=== PATIENT | female | born 1975 | race Caucasian/White ===

== ENCOUNTER 2017-02-03 23:31 | Emergency (ER) | payer OTHER ==
[2017-02-03 23:38] VITALS: TEMP 97.9
[2017-02-03] MEDS ORDERED: HYDROmorphONE/DILAUDID 1 MG/ML SYR IVP ONE (23:51)
[2017-02-03] MEDS ORDERED: ONDANSETRON 4 MG/2 ML VIAL IVP ONE (23:51)
[2017-02-04 00:04] LABS: % IMMATURE GRANULYOCYTES 0.4 % (0.0-1.1); ABSOLUTE IMMATURE GRANULOCYTES 0.05 10^3/uL (0.00-0.10); ADD DIFF? NO; ADD MORPH? NO; ADD SCAN? NO; ATYPICAL LYMPHOCYTE FLAG 0 (0-99); FRAGMENT RBC FLAG 0 (0-99); HEMOGLOBIN 12.8 g/dL (12.6-16.3); LEFT SHIFT FLG 0 (0-99); LIPEMIA HEMOLYSIS FLAG 90 (0-99); MEAN CELL HEMOGLOBIN 29.7 pg (27.9-34.1); MEAN CELL HEMOGLOBIN CONCENTR. 34.6 g/dL (32.4-36.7); MEAN CELL VOLUME 85.8 fL (81.5-99.8); MEAN PLATELET VOLUME 8.3 fL (8.7-11.7); PLATELET CLUMPS FLAG 10 (0-99); PLATELET COUNT 462 10^3/uL (150-400); RED BLOOD CELL COUNT 4.31 10^6/uL (4.18-5.33); RED CELL DISTRIBUTION WIDTH 11.9 % (11.5-15.2)
[2017-02-04 00:27] LABS: ALANINE AMINOTRANSFERASE 63 IU/L (9-52); ALBUMIN 4.3 g/dL (3.5-5.0); ALKALINE PHOSPHATASE 70 IU/L (38-126); ANION GAP 14 mEq/L (8-16); ASPARTATE AMINOTRANSFERASE 93 IU/L (14-46); BILIRUBIN,TOTAL 0.8 mg/dL (0.1-1.4); BILIRUBIN-CONJUGATED 0.5 mg/dL (0.0-0.5); BILIRUBIN-UNCONJUGATED 0.3 mg/dL (0.0-1.1); CALCIUM 9.7 mg/dL (8.5-10.4); CARBON DIOXIDE 21 mEq/l (22-31); CHLORIDE 106 mEq/L (97-110); CREATININE 0.9 mg/dL (0.6-1.0); GLOMERULAR FILTRATION RATE > 60; GLUCOSE 126 mg/dL (70-100); POTASSIUM 4.1 mEq/L (3.5-5.2); SODIUM 141 mEq/L (134-144); TOTAL PROTEIN 7.3 g/dL (6.3-8.2)
--- NOTE | 2017-02-04 00:43 | EDPHY ---
H & P Stated Complaint: RLQ abd pain - Personal History LMP (Females 10-55): 1-7 Days Ago Current Tetanus/Diphtheria Vaccine: Yes Current Tetanus Diphtheria and Acellular Pertussis (TDAP): Yes - Medical/Surgical History Hx Asthma: Yes Hx Chronic Respiratory Disease: No Hx Diabetes: No Hx Cardiac Disease: No Hx Renal Disease: No Hx Cirrhosis: No Hx Alcoholism: No Hx HIV/AIDS: No Hx Splenectomy or Spleen Trauma: No Other PMH: asthma, - Social History Smoking Status: Never smoked Time Seen by Provider: 02/03/17 23:43 HPI/ROS: Chief complaint: Abdominal pain History of present illness: This is a 41-year-old female who presents to the emergency department for evaluation of abdominal pain. Patient reports the onset of symptoms earlier this evening. She reports pain in the right, upper aspect of the abdomen. It does radiate towards her mid back. She describes a squeezing pain. She has had nausea but no vomiting. She denies precipitating factors. She denies alleviating factors. She denies other associated signs or symptoms including no fevers, again no vomiting, no diarrhea, no urinary symptoms. Review of systems: A 10 point review of systems was obtained and other than described above was negative (Esteban Cisneros) - Physical Exam Exam: General Appearance: Alert, nontoxic. Eyes: Pupils equal and round no pallor or injection. ENT, Mouth: Mucous membranes moist. Respiratory: There are no retractions, lungs are clear to auscultation. Cardiovascular: Regular rate and rhythm. Gastrointestinal: Bowel sounds normal. Abdomen is soft, nondistended. There is tenderness in the right upper quadrant with positive Marquez sign. No McBurney 's point tenderness. Neurological: Alert and oriented. Strength and sensation intact and symmetrical. Skin: Warm and dry, no rashes. Musculoskeletal: Neck is supple nontender. Extremities are symmetrical, full range of motion. Psychiatric: Patient is oriented X 3, there is no agitation. (Esteban Cisneros) Constitutional: Initial Vital Signs Temperature (C) 36.6 C 02/03/17 23:35 Heart Rate 72 02/03/17 23:35 Respiratory Rate 18 02/03/17 23:35 Blood Pressure 131/82 H 02/03/17 23:35 O2 Sat (%) 99 02/03/17 23:35 O2 Delivery Mode Room Air Allergies/Adverse Reactions: Penicillins Allergy (Severe, Verified 02/03/17 23:34) Anaphylaxis Home Medications: Medication Instructions Recorded Albuterol HFA 17g 10/10/10 Montelukast Sodium 02/03/17 Medical Decision Making - Diagnostics Imaging Results: Right upper quadrant ultrasound demonstrates multiple small dependent, mobile gallstones, no gallbladder wall thickening, sonographic Marquez's, pericholecystic fluid, dilated CBD, discussed with Dr. Salinas of Radiology. ( Delphine He) ED Course/Re-evaluation: Patient seen under the supervision of my secondary supervising physician Dr. Delphine Abbasi. Patient presents to the emergency department for right upper quadrant abdominal pain. She is tender in this region. Blood studies concerning for mild elevated white blood cell count, mild elevation of LFTs and blood in the urine. Right upper quadrant ultrasound is ordered and is pending at time of dictation. Care of patient is turned over to my attending physician Dr. Delphine Abbasi end of shift. (Esteban Cisneros) PHYSICIAN DOCUMENTATION: The patient was evaluated and managed by the Physician [employer]. My co- signature indicates that I have reviewed this chart and I agree with the findings and plan of care as documented. I am the secondary supervising physician. I reassessed the patient after her ultrasound. Her pain has improved significantly. She has not had any vomiting. On abdominal exam, she does not have any tenderness. I reviewed her test results with her and her ultrasound. I explained cholelithiasis and cholecystitis to her. She does have a leukocytosis and a mild transaminitis, however given resolution of her symptoms , I do not feel she would benefit from inpatient hospitalization. I have offered hospitalization to her, however she would like to go home. I have instructed her to avoid greasy and fatty foods. I have told her to take ibuprofen as needed for pain. I have referred her to General surgery for further evaluation. She is in agreement with this plan. She was given a p. o. trial without any difficulty. (Delphine He) Differential Diagnosis: Included but not limited to biliary tract disease, pancreatitis, peptic ulcer disease, gastroenteritis, appendicitis, urinary tract disease (Esteban Cisneros) - Data Points Laboratory Results: Laboratory Results 02/04/17 00:01 02/04/17 00:01 02/04/17 02/04/17 02/04/17 00:01 00:01 00:01 WBC 13.08 10^3/uL H 10^3/uL (3.80-9.50) RBC 4.31 10^6/uL 10^6/uL (4.18-5.33) Hgb 12.8 g/dL g/dL (12.6-16.3) Hct 37.0 % L % (38.0-47.0) MCV 85.8 fL fL (81.5-99.8) MCH 29.7 pg pg (27.9-34.1) MCHC 34.6 g/dL g/dL (32.4-36.7) RDW 11.9 % % (11.5-15.2) Plt Count 462 10^3/uL H 10^3/uL (150-400) MPV 8.3 fL L fL (8.7-11.7) Neut % (Auto) 66.2 % % (39.3-74.2) Lymph % (Auto) 22.5 % % (15.0-45.0) Johnson % (Auto) 7.5 % % (4.5-13.0) Eos % (Auto) 2.9 % % (0.6-7.6) Baso % (Auto) 0.5 % % (0.3-1.7) Nucleat RBC Rel Count 0.0 % % (0.0-0.2) Absolute Neuts (auto) 8.67 10^3/uL H 10^3/uL (1.70-6.50) Absolute Lymphs (auto) 2.94 10^3/uL 10^3/uL (1.00-3.00) Absolute Monos (auto) 0.98 10^3/uL H 10^3/uL (0.30-0.80) Absolute Eos (auto) 0.38 10^3/uL 10^3/uL (0.03-0.40) Absolute Basos (auto) 0.06 10^3/uL 10^3/uL (0.02-0.10) Absolute Nucleated RBC 0.00 10^3/uL 10^3/uL (0-0.01) Immature Gran % 0.4 % % (0.0-1.1) Immature Gran # 0.05 10^3/uL 10^3/uL (0.00-0.10) Sodium 141 mEq/L mEq/L (134-144) Potassium 4.1 mEq/L mEq/L (3.5-5.2) Chloride 106 mEq/L mEq/L (97-110) Carbon Dioxide 21 mEq/l L mEq/l (22-31) Anion Gap 14 mEq/L mEq/L (8-16) BUN 19 mg/dL mg/dL (7-23) Creatinine 0.9 mg/dL mg/dL (0.6-1.0) Estimated GFR > 60 Glucose 126 mg/dL H mg/dL (70-100) Calcium 9.7 mg/dL mg/dL (8.5-10.4) Total Bilirubin 0.8 mg/dL mg/dL (0.1-1.4) Conjugated Bilirubin 0.5 mg/dL mg/dL (0.0-0.5) Unconjugated Bilirubin 0.3 mg/dL mg/dL (0.0-1.1) AST 93 IU/L H IU/L (14-46) ALT 63 IU/L H IU/L (9-52) Alkaline Phosphatase 70 IU/L IU/L (38-126) Total Protein 7.3 g/dL g/dL (6.3-8.2) Albumin 4.3 g/dL g/dL (3.5-5.0) Lipase 101.0 IU/L IU/L (23-300) Beta HCG, Qual NEGATIVE Medications Given: Discontinued Medications Hydrocodone Bitart/Acetaminophen ([place] 5/325mg Prepack#6) 1 btl TAKEHOME EDNOW ONE Stop: 02/04/17 01:25 Last Admin: 02/04/17 01:28 Dose: 1 btl Hydromorphone HCl (Dilaudid) 0.5 mg IVP EDNOW ONE Stop: 02/03/17 23:52 Last Admin: 02/04/17 00:09 Dose: 0.5 mg Ondansetron HCl (Zofran) 4 mg IVP EDNOW ONE Stop: 02/03/17 23:52 Last Admin: 02/04/17 00:09 Dose: 4 mg Departure - Departure Disposition: Home, Routine, Self-Care Clinical Impression: Cholelithiasis Qualifiers: Cholelithiasis location: gallbladder Cholecystitis presence: without cholecystitis Biliary obstruction: without biliary obstruction Qualified Code(s) : K80.20 - Calculus of gallbladder without cholecystitis without obstruction Condition: Good Instructions: Hydrocodone/Acetaminophen (By mouth), Biliary Colic (ED) Additional Instructions: Please avoid any fatty or greasy foods. Please take the pain medication if your pain returns. You can start with ibuprofen 400 mg every 6 hours, if the pain is more severe, you can take the pain pills. I have given you information for the general surgeon, you should call to make an appointment. If your pain is severe, if you have severe nausea or vomiting, or if you develop a fever you must return to the emergency room. Referrals: Mariela Littlejohn MD [Primary Care Provider] - As per Instructions Alex Magallanes MD [Medical Doctor] - As per Instructions
[2017-02-04] MEDS ORDERED: HYDROCOD/APAP 5/325 PREPACK#6 BTL TAKEHOME ONE (01:24)
[2017-02-04 01:28] VITALS: BP 100/70; PULSE 80; RESP 14; O2SAT 96
== END 2017-02-04 01:55 | disposition home or self-care (01) ==
DX: K80.20 Calculus of gallbladder without cholecystitis without obstruction (principal); J45.909 Unspecified asthma, uncomplicated
CPT/HCPCS: 96374; J1170; J2405

== ENCOUNTER 2017-02-11 07:16 | Day surgery (SDC) | payer OTHER ==
[~2017-02-11 07:16] MED LIST: BUPIVACAINE/EPI 0.25% 30 ML SDV ONE; CLINDAMYCIN 600 MG/DEXTROSE 50 ML IV ONE
[2017-02-11] MEDS ORDERED: BUPIVACAINE/EPI 0.25% 30 ML SDV ONE (07:44)
[2017-02-11] MEDS ORDERED: IOPAMIDOL (ISOVUE-300) 150 ML BTL ONE (07:44)
[2017-02-11] MEDS ORDERED: LIDOCAINE 1% 2 ML INJ ONE (07:47)
[2017-02-11] MEDS ORDERED: LR 1,000 ML IV ONE (08:14)
[2017-02-11] MEDS ORDERED: LIDOCAINE 1% 5 ML SDV ID PRN (08:14)
[2017-02-11] MEDS ORDERED: MIDAZOLAM 2 MG/2 ML VIAL ONE (08:56)
[2017-02-11] MEDS ORDERED: fentaNYL 100 MCG/2 ML INJ ONE ×2 (08:58)
[2017-02-11] MEDS ORDERED: PROPOFOL 200 MG/20 ML VIAL ONE (08:58)
[2017-02-11] MEDS ORDERED: DEXAMETHASONE 4 MG/ML VIAL ONE ×2 (08:58)
[2017-02-11] MEDS ORDERED: LIDOCAINE 2% 100 MG/5 ML SYR ONE (08:59)
[2017-02-11] MEDS ORDERED: KETOROLAC 30 MG/1 ML SDV ONE (08:59)
[2017-02-11] MEDS ORDERED: METOCLOPRAMIDE 10 MG/2 ML VIAL ONE (08:59)
[2017-02-11] MEDS ORDERED: ROCURONIUM 100 MG/10 ML VIAL ONE (08:59)
[2017-02-11] MEDS ORDERED: ONDANSETRON 4 MG/2 ML VIAL ONE ×3 (10:15→12:15)
[2017-02-11] MEDS ORDERED: HYDROmorphONE/DILAUDID 2 MG/ML INJ ONE (11:23)
[2017-02-11] MEDS ORDERED: OXYCODONE/APAP 5/325 TAB ONE (12:06)
--- NOTE | 2017-02-12 16:26 | GOP ---
[f rep st] OPERATIVE REPORT DATE OF OPERATION: 02/11/2017 SURGEON: Alex Magallanes MD [employer]IAL [employer]URITY [employer]ENEFITS INTERVIEWER: Lloyd Siddiqui, PAC. ANESTHESIA: General endotracheal per Corey Espinoza M.D. PREOPERATIVE DIAGNOSIS: Biliary colic. POSTOPERATIVE DIAGNOSIS: Chronic cholecystitis. PROCEDURE PERFORMED: Laparoscopic cholecystectomy. FINDINGS: Fair amount of wall induration and some adhesions to the gallbladder wall were identified . A critical view was obtained prior to clipping both the cystic duct and artery. SPECIMENS: Gallbladder. ESTIMATED BLOOD LOSS: 25 cc. DESCRIPTION OF PROCEDURE: The patient was greeted in the preoperative suite. Once again, risks, be nefits, and alternatives were discussed. Consent was then signed. She was then brought back to the operative suite, placed on the OR table in a supine position. After all anesthesia machines, inclu ding SCDs, were on and functioning, a World Health [employer] time-out was performed, ending with all in agreement. Antibiotics were given on-call to the operating room. After successful induction of general anesthesia, the patient's abdomen was widely prepped and drape d in typical sterile fashion. I entered the abdomen via an inferior umbilical incision through whic h the Veress needle was passed. I insufflated with CO2 to 15 mmHg which [facility] Through this same incision I inserted a 12 mm Visiport under direct visualization. Once successfull y in the abdomen, I placed 3 additional 5 mm trocars, 1 in the subxiphoid, 2 in the right upper quad rant, all under direct visualization. After this was done, I grasped the dome of the liver and retr acted it successfully over the liver. There were some peritoneal adhesions which were successfully taken down bluntly. After this was done, I turned my attention towards the infundibulum, and via a combination of electr ocautery and blunt dissection, I identified 2 and only 2 structures, leading toward the gallbladder proper. After I identified these to be both the cystic duct and artery, I 1st clipped and divided t he cystic duct and did the same for the artery. There was a small arterial branch posterior to this which did bleed somewhat after this, which was successfully made hemostatic with an additional clip . After hemostasis was achieved, I turned my attention towards removing the gallbladder off the liver bed which was done with electrocautery. After successfully doing this, it was placed in an EndoCat ch bag and removed. I turned my attention back towards the right upper quadrant. I irrigated with 1 L of warm normal saline, removing all blood and bile within the patient's right upper quadrant. I then inspected my clips which were noted to be in satisfactory condition. I then instilled local anesthesia into all port sites which were removed under direct visualization. Prior to doing this, I used the Vitor Mariluz fascial closure device to close my infraumbilical incision, noting excell ent fascial reapproximation with a single 0 Vicryl stitch. Ports were then removed and pneumoperitoneum was evacuated. All skin sites were closed with a runni ng 4-0 Monocryl stitch over which Dermabond was placed. The patient tolerated the procedure well wi thout any intraoperative complications. DRAINS: None. COMPLICATIONS: None. /[id number]/MODL
== END 2017-02-11 14:00 | disposition home or self-care (01) ==
LOC: FSGY 07:16
PROVIDERS: ATTEND Surgery
PROC: 0FT44ZZ Resection of Gallbladder, Percutaneous Endoscopic Approach (ICD-10-PCS; principal; 2017-02-11 08:45)
DX: K80.10 Calculus of gallbladder with chronic cholecystitis without obstruction (principal); K66.0 Peritoneal adhesions (postprocedural) (postinfection); J45.909 Unspecified asthma, uncomplicated; E66.01 Morbid (severe) obesity due to excess calories; Z88.0 Allergy status to penicillin
CPT/HCPCS: J1100; J1170; J1885; J2001; J2250; J2405; J2704; J2765; J3010; Q9967

== ENCOUNTER 2017-02-12 21:15 | Emergency (ER) | payer OTHER ==
[2017-02-12 21:22] VITALS: RESP 18
--- NOTE | 2017-02-12 21:53 | EDPHY ---
H & P Stated Complaint: incision from gallbladder surgery red, spreading and draining HPI/ROS: HPI CHIEF COMPLAINT: Possible gallbladder incision infection HISTORY OF PRESENT ILLNESS: This patient very pleasant 41-year-old female she had gallbladder surgery yesterday. Dr. Magallanes with our took her gallbladder out. She presents emergency room with questioning concerned about her umbilicus incision concern of redness pain and swelling. She is concerned may be infected. She denies fever, denies significant abdominal pain states she is eating and drinking okay. No juliann pus. Past Medical History: No significant medical history except for asthma Past Surgical History: Laparoscopic cholecystectomy yesterday Social History: Denies drugs alcohol tobacco products Family History: Noncontributory ROS REVIEW OF SYSTEMS: A comprehensive 10 point review of systems is otherwise negative aside from elements mentioned in the history of present illness. Exam Constitutional triage nursing summary reviewed, vital signs reviewed, awake/ alert. Eyes normal conjunctivae and sclera, EOMI, PERRLA. HENT normal inspection, atraumatic, moist mucus membranes, no epistaxis, neck supple/ no meningismus, no raccoon eyes. Respiratory clear to auscultation bilaterally, normal breath sounds, no respiratory distress, no wheezing. Cardiovascular rate normal, regular rhythm, no murmur, no edema, distal pulses normal. Gastrointestinal laparoscopic incision sites: Look good, clean, intact, the umbilical incision site is mildly erythematous proximal to the umbilical incision site there is some streaking, minimal warmth no juliann pus, no guarding , normal bowel sounds, no distension, no pulsatile mass. Genitourinary no CVA tenderness. Musculoskeletal no midline vertebral tenderness, full range of motion, no calf swelling, no tenderness of extremities, no meningismus, good pulses, neurovascularly intact. Skin pink, warm, & dry, no rash, skin atraumatic. Neurologic awake, alert and oriented x 3, AAOx3, moves all 4 extremities equally, motor intact, sensory intact, CN II-XII intact, normal cerebellar, normal vision, normal speech. Psychiatric normal mood/affect. Heme/Lymph/Immune no lymphadenopathy. Differential Diagnosis: Includes but is not limited to in a particular order laparoscopic incision infection, abdominal wall cellulitis, postoperative inflammatory changes Medical Decision Making: Plan for this patient Bactrim p. o. here in emergency Keflex p. o. here in emergency room. I will consult surgery Dr. Magallanes is actually on-call for this and this is his patient I will ask that he comes and sees the patient emergency room. Re-evaluation: Source: Patient - Personal History LMP (Females 10-55): 15-21 Days Ago Current Tetanus/Diphtheria Vaccine: Yes Current Tetanus Diphtheria and Acellular Pertussis (TDAP): Yes Tetanus Vaccine Date: <10 years - Medical/Surgical History Hx Asthma: Yes Hx Chronic Respiratory Disease: No Hx Diabetes: No Hx Cardiac Disease: No Hx Renal Disease: No Hx Cirrhosis: No Hx Alcoholism: No Hx HIV/AIDS: No Hx Splenectomy or Spleen Trauma: No Other PMH: asthma, gallbladder removed 02/11 - Social History Smoking Status: Never smoked Constitutional: Initial Vital Signs Temperature (C) 36.7 C 02/12/17 21:19 Heart Rate 70 02/12/17 21:19 Respiratory Rate 18 02/12/17 21:19 O2 Sat (%) 96 02/12/17 21:19 O2 Delivery Mode Room Air Allergies/Adverse Reactions: Penicillins Allergy (Severe, Verified 02/10/17 15:56) Anaphylaxis Home Medications: Medication Instructions Recorded Albuterol HFA 17g 10/10/10 Montelukast Sodium 02/03/17 Fluticasone Nasal 02/10/17 Herbals/Supplements -Info Only 02/10/17 Cephalexin [Keflex] 500 mg PO Q6H #28 cap 02/12/17 Sulfamethox/Tmp 800/160 mg 1 tab PO BID@1000,2200 #14 tab 02/12/17 [Bactrim Ds] Departure - Departure Disposition: Home, Routine, Self-Care Clinical Impression: Abdominal wall cellulitis Condition: Good Instructions: Cellulitis (ED) Additional Instructions: 1. Watch closely for further signs of worsening infection this includes redness , swelling, pain or fever. 2. Please take antibiotics as prescribed. 3. Return emergency room if you have any worsening symptoms questions or concerns. Referrals: NONE *PRIMARY CARE P,. [Primary Care Provider] - As per Instructions Alex Magallanes MD [Medical Doctor] - As per Instructions Prescriptions: Cephalexin [Keflex] 500 mg PO Q6H #28 cap Sulfamethox/Tmp 800/160 mg [Bactrim Ds] 1 tab PO BID@1000,2200 #14 tab
[2017-02-12] MEDS ORDERED: SULFAMETHOX/TMP 800/160 MG 1 TAB PO ONE (21:57)
[2017-02-12] MEDS ORDERED: CEPHALEXIN 500 MG CAP PO ONE (21:57)
[2017-02-12 22:37] VITALS: BP 132/71; PULSE 88; TEMP 98.6; O2SAT 94
--- NOTE | 2017-02-12 23:06 | GCON ---
[f rep st] CONSULTATION DATE OF CONSULTATION: 02/12/2017 CHIEF COMPLAINT: Incisional redness. HISTORY OF PRESENT ILLNESS: This is a 41-year-old female, postoperative day 1 from a laparoscopic cholecystectomy performed by me yesterday as an outpatient. The patient states that she went home yesterday evening uneventfully healing from her surgery and doing well. She states that over the night, she had no issues, but awoke this morning, and had some redness around her umbilical incision. She does endorse that this got a little bit bigger today, which is why she called a nurse line here at [facility], and they prompted her to present to the emergency department. Other than the redness around her umbilical incision, she has no other complaints. She continues to tolerate a regular diet. Has no fevers, chills, and her pain appears well controlled. She was just concerned about the redness at that site. PAST MEDICAL HISTORY: Asthma. PAST SURGICAL HISTORY: Postoperative day 1 from a laparoscopic cholecystectomy. SOCIAL HISTORY: Denies drug and alcohol abuse. Lives in the area with her son. CURRENT MEDICATIONS: Percocet inhalers and Zofran. REVIEW OF SYSTEMS: A full 10-point review was performed and unless explicitly stated above, is otherwise negative. PHYSICAL EXAM: VITAL SIGNS: Blood pressure 130/70, heart rate 88, and she is 94% on room air. Her temperature is 36.7. GENERAL: She is alert and oriented , in no acute distress. CV: She has a regular rate and rhythm, without any murmurs. LUNGS: Clear. ABDOMEN: Soft. Incision sites are clean, dry and intact. The umbilical site does have what appears to be about a 2-cm circumferential area of bruising around it. It does not appear to be infectious , it does not kimberly to touch, and it is relatively minimal tender. The glue placed intraoperatively is healing appropriately. She does also have some stranding on her right side of her abdomen in the inferior portion, which was out of the operative field, which is also red and indurated. ASSESSMENT AND PLAN: A 41-year-old female, status post laparoscopic cholecystectomy, postoperative day 1. I do agree with Dr. Naranjo's impression in the emergency department that this could represent an early cellulitis, but I feel more likely that this represents a bruise related to the trauma of surgery at the port site. I anticipate that this will resolve. She has no systemic signs of infection, but it sounds like she would be reassured on a short course of oral antibiotics. I have asked the emergency department to provide these. I will have her follow up in the clinic next week to ensure that she is continuing to heal appropriately. /[id number]/MODL MTDD
== END 2017-02-12 22:36 | disposition home or self-care (01) ==
DX: L03.311 Cellulitis of abdominal wall (principal); J45.909 Unspecified asthma, uncomplicated; Y82.8 Other medical devices associated with adverse incidents

== ENCOUNTER → 2017-04-26 | Outpatient (CLI) | payer OTHER | LOC: FIMAGING 07:28 | PROVIDERS: ATTEND Nurse Practitioner Women's Health | DX: Z12.31 Encounter for screening mammogram for malignant neoplasm of breast (principal) | CPT/HCPCS: G0202 ==

== ENCOUNTER → 2018-06-22 | Outpatient (CLI) | payer OTHER | LOC: FIMAGING 07:43 | PROVIDERS: ATTEND Nurse Practitioner Women's Health | DX: Z12.31 Encounter for screening mammogram for malignant neoplasm of breast (principal) ==